=== PATIENT | male | born 1980 | race Caucasian/White ===

== ENCOUNTER 2016-07-25 15:55 | Emergency (ER) | payer OTHER ==
[~2016-07-25] VITALS: Ht 180.3 cm; Wt 72.6 kg
[2016-07-25 17:41] LABS: BASOPHILS # (AUTO) 0.1 /CMM (0.0-0.2); BASOPHILS % (AUTO) 0.7 % (0.0-2.0); DIFF TOTAL % 100 %; EOSINOPHILS # (AUTO) 0.1 /CMM (0.0-0.7); EOSINOPHILS % (AUTO) 0.6 % (0.0-6.0); HEMATOCRIT 46 % (39-51); HEMOGLOBIN 15.5 g/dL (13.5-17.5); LYMPHOCYTES # (AUTO) 1.5 /CMM (0.8-4.8); LYMPHOCYTES % (AUTO) 9.1 % (20.0-44.0); MEAN CORPUSCULAR HEMOGLOBIN 30 PG (26.0-33.0); MEAN CORPUSCULAR HGB CONC 34 g/dl (31.0-36.0); MEAN CORPUSCULAR VOLUME 88 fL (80-96); MONOCYTES # (AUTO) 0.7 /CMM (0.1-1.30); MONOCYTES % (AUTO) 4.5 % (2.0-12.0); NEUTROPHILS # (AUTO) 13.8 /CMM (1.8-8.9); NEUTROPHILS % (AUTO) 85.1 % (43.0-81.0); PLATELET COUNT (AUTO) 227 /CMM (150-450); WHITE BLOOD COUNT (AUTO) 16.2 K/uL (4.3-11.0)
[2016-07-25 17:53] LABS: ANION GAP 11 (5-14); CALCIUM, SERUM 9.1 mg/dL (8.5-10.1); CARBON DIOXIDE 26 mmol/L (21-32); CHLORIDE 104 mmol/L (98-107); CREATININE 1.1 mg/dL (0.6-1.3); GFR 76 mL/min (>60); GLUCOSE 106 mg/dL (74-106); POTASSIUM 3.9 mmol/L (3.5-5.1); SODIUM SERUM 137 mmol/L (136-145); UREA NITROGEN, BLOOD 17 mg/dL (7-18)
[2016-07-25 17:56] LABS: PROTHROMBIN TIME 10.5 SECS (9.5-12.7)
[2016-07-25 17:58] LABS: ALANINE AMINOTRANSFERASE 25 U/L (12-78); ALBUMIN 4.1 g/dL (3.4-5.0); ASPARTATE AMINOTRANSFERASE 18 U/L (15-37); BILIRUBIN,DIRECT 0.1 mg/dL (0.0-0.2); BILIRUBIN,TOTAL 0.4 mg/dL (0.2-1.0); INDIRECT BILIRUBIN 0.3 mg/dL (0.0-1.1); TOTAL PROTEIN, SERUM 7.1 g/dL (6.4-8.2)
[2016-07-25] MEDS ORDERED: LORAZEPAM INJ 2 MG/ML VIAL IV ONE (18:00)
[2016-07-25] MEDS ORDERED: LORAZEPAM INJ 2 MG/ML VIAL ONE (18:06)
[2016-07-25 18:59] LABS: PHENOBARBITAL 0 ug/ml (15-39); VALPROIC ACID 2 ug/mL (50-100)
[2016-07-25 19:38] VITALS: BP 144/83
== END 2016-07-25 19:40 | disposition home or self-care (01) ==
LOC: ER 15:56
DX: G40.909 Epilepsy, unspecified, not intractable, without status epilepticus (principal); F17.200 Nicotine dependence, unspecified, uncomplicated; R79.1 Abnormal coagulation profile
CPT/HCPCS: 36415; 80048; 80076; 80164; 80184; 80185; 85025; 85730; 93005; 96374; 99285; A4606; G0481; J2060; Z7610; G6040-TC

== ENCOUNTER 2019-12-02 07:41 | Emergency (ER) | payer OTHER ==
[~2019-12-02] VITALS: Ht 180.3 cm; Wt 72.6 kg
[2019-12-02] MEDS ORDERED: KETOROLAC TROMETHAMINE INJ 30 MG/ML VIAL ONE (08:17)
[2019-12-02] MEDS ORDERED: oxyCODONE/APAP (5/325 MG) 1 UDTAB TABLET ONE (08:17)
[2019-12-02] MEDS: oxyCODONE/APAP (5/325 MG) 1 UDTAB TABLET PO ONE (08:20)
[2019-12-02] MEDS: KETOROLAC TROMETHAMINE INJ 60 MG/2 ML VIAL IM ONE (08:20)
[2019-12-02 09:06] VITALS: BP 136/71
== END 2019-12-02 09:06 | disposition home or self-care (01) ==
LOC: ER 07:50
DX: S53.491A Other sprain of right elbow, initial encounter (principal); G40.909 Epilepsy, unspecified, not intractable, without status epilepticus; V49.59XA Passenger injured in collision with other motor vehicles in traffic accident, initial encounter; Y93.89 Activity, other specified; Y92.488 Other paved roadways as the place of occurrence of the external cause; Y99.8 Other external cause status
CPT/HCPCS: 29105; 73070; 96372; 99283; J1885